=== PATIENT | male | born 2000 | race Two or more races ===

== ENCOUNTER 2022-08-02 04:24 | Inpatient (IN) | payer OTHER ==
[~2022-08-02] VITALS: Ht 167.6 cm; Wt 65.0 kg
[2022-08-02 07:43] LABS: Basophils # (auto) 0 10 ^3/uL (0-0.2); Basophils % (auto) 0.3 % (0.0-2.0); Eosinophils # (auto) 0.1 10 ^3/uL (0-0.8); Eosinophils % (auto) 0.4 % (0.0-7.0); Hematocrit 48.2 % (41.0-53.0); Hemoglobin 16.4 g/dL (13.5-17.5); Lymphocytes # (auto) 1.6 10 ^3/uL (0.4-5.4); Lymphocytes % (auto) 12.7 % (10.0-50.0); Mean Corpuscular Hemoglobin 30.9 pg (28.0-32.0); Mean Corpuscular Hgb Conc. 33.9 g/dL (32.0-36.0); Mean Corpuscular Volume 91.2 fL (80.0-100.0); Monocytes % (auto) 7.5 % (0.0-12.0); Neutrophils # (auto) 10.1 10 ^3/uL (1.6-8.6); Neutrophils % (auto) 79.1 % (37.0-80.0); Nucleated Red Blood Cells % 0.1 %; Red Blood Cells 5.29 10^6/uL (4.5-5.90); Red Cell Distribution Width 13.8 % (11.8-14.3); White Blood Cell 12.7 10^3/uL (4.4-10.8)
[2022-08-02 07:59] LABS: Albumin 4.3 g/dL (3.4-5.0); Calcium 9.5 mg/dL (8.5-10.1); Potassium 4.3 mmol/L (3.5-5.1)
[2022-08-02 08:02] LABS: BUN/Creatinine Ratio 34.7; Bilirubin, Total 0.7 mg/dL (0.2-1.0); Total Protein 7.6 g/dL (6.4-8.2)
[2022-08-02 08:09] LABS: Acetaminophen < 2.0 ug/mL (10-30)
[2022-08-02] MEDS ORDERED: ONDANSETRON HCL 4 MG/2 ML VIAL IV PRN (11:15)
[2022-08-02] MEDS ORDERED: HYDROcodone-ACET 5/325MG TAB PO PRN (11:15)
[2022-08-02] MEDS ORDERED: DOCUSATE SOD 100 MG CAP PO PRN (11:15)
[2022-08-02] MEDS ORDERED: HAL1T PO (17:13)
[2022-08-02] MEDS ORDERED: QUET50TA27 PO (17:13)
[2022-08-02] MEDS ORDERED: LORA0.5T20 PO (17:13)
[2022-08-02] MEDS ORDERED: LORazepam 2MG/ML-1ML VIAL IV PRN (19:30)
[2022-08-02] MEDS ORDERED: LORazepam 0.5 MG TAB PO PRN (20:45)
[2022-08-02] MEDS: NEOMYCIN-BACITRACIN-POLYM UNITDOSE PKG TOP OINT TOP SCH (22:00)
[2022-08-02] MEDS: QUEtiapine FUMARATE 25 MG TAB PO SCH (23:35)
[2022-08-02] MEDS: BETAMETHASONE DIPROP0.05% TOPICAL CREAM 15GM TOP SCH (23:35)
[2022-08-02] MEDS: HALOPERIDOL 1 MG TAB PO PRN (23:36)
[2022-08-03] MEDS: QUEtiapine FUMARATE 25 MG TAB PO SCH ×2 (07:00→14:47)
[2022-08-03 07:09] LABS: BUN/Creatinine Ratio 30.3; Bilirubin, Total 0.5 mg/dL (0.2-1.0); Calcium 9.4 mg/dL (8.5-10.1); Potassium 4.4 mmol/L (3.5-5.1); Total Protein 7.3 g/dL (6.4-8.2)
[2022-08-03 07:17] LABS: Basophils # (auto) 0 10 ^3/uL (0-0.2); Basophils % (auto) 0.5 % (0.0-2.0); Eosinophils # (auto) 0.1 10 ^3/uL (0-0.8); Eosinophils % (auto) 1.9 % (0.0-7.0); Hematocrit 48.2 % (41.0-53.0); Hemoglobin 15.9 g/dL (13.5-17.5); Lymphocytes # (auto) 2.3 10 ^3/uL (0.4-5.4); Mean Corpuscular Hemoglobin 30.5 pg (28.0-32.0); Mean Corpuscular Hgb Conc. 33.1 g/dL (32.0-36.0); Mean Corpuscular Volume 92.3 fL (80.0-100.0); Monocytes # (auto) 0.8 10 ^3/uL (0-1.3); Monocytes % (auto) 10.5 % (0.0-12.0); Neutrophils # (auto) 4.2 10 ^3/uL (1.6-8.6); Neutrophils % (auto) 56.1 % (37.0-80.0); Nucleated Red Blood Cells % 0.1 %; Red Blood Cells 5.22 10^6/uL (4.5-5.90); Red Cell Distribution Width 14.2 % (11.8-14.3); White Blood Cell 7.5 10^3/uL (4.4-10.8)
[2022-08-03] MEDS: HALOPERIDOL 1 MG TAB PO PRN (10:23)
[2022-08-03] MEDS: BETAMETHASONE DIPROP0.05% TOPICAL CREAM 15GM TOP SCH (10:24)
[2022-08-03] MEDS: NEOMYCIN-BACITRACIN-POLYM UNITDOSE PKG TOP OINT TOP SCH (10:41)
[2022-08-03 16:49] VITALS: BP 125/89
== END 2022-08-03 17:52 | disposition home or self-care (01) | DRG 605 ==
LOC: EDUNIT# 04:24 → EDBD 04:24 → EDSEX 04:24 → ER 04:24 → OVERFLOW 11:23 → EAST 18:00
PROVIDERS: ADMIT Nurse Practitioner Family; ATTEND Nurse Practitioner Acute Care
DX: S00.83XA Contusion of other part of head, initial encounter (principal); F84.0 Autistic disorder; R56.9 Unspecified convulsions; G43.909 Migraine, unspecified, not intractable, without status migrainosus; W22.01XA Walked into wall, initial encounter; Y93.89 Activity, other specified; Y92.098 Other place in other non-institutional residence as the place of occurrence of the external cause; Y99.8 Other external cause status
CPT/HCPCS: 36415; 70450; 71045; 72125; 80053; 80329; 85025; G0378